=== PATIENT | female | born 2000 | race African-American/Black ===

== ENCOUNTER 2021-12-28 20:38 | Emergency (ER) | payer SELFPAY ==
[2021-12-28] MEDS ORDERED: Lidocaine 1% w/Epinephrine 1:100K 20 ML VIAL ONE (21:14)
== END 2021-12-28 21:55 | disposition home or self-care (01) ==
LOC: CSHERS 20:38
DX: L05.01 Pilonidal cyst with abscess (principal)
CPT/HCPCS: 10080

== ENCOUNTER 2021-12-31 09:57 | Emergency (ER) | payer SELFPAY | END 2021-12-31 11:21 | disposition home or self-care (01) | LOC: CSHERS 09:57 | DX: L02.31 Cutaneous abscess of buttock (principal) | CPT/HCPCS: 99282 ==